=== PATIENT | female | born 1980 ===

== ENCOUNTER 2020-07-07 08:44 | Inpatient (IN) | payer OTHER ==
[~2020-07-07] VITALS: Ht 162.6 cm; Wt 2.3 kg
[2020-07-07] MEDS ORDERED: PRENATAL TABLE1 EAC1 PO (09:25)
== END 2020-07-10 14:43 | disposition home or self-care (01) | DRG 788 ==
LOC: LDR 08:44 → OB/GYN 07-08 02:01
PROVIDERS: Obstetrics & Gynecology; ADMIT Obstetrics & Gynecology; ATTEND Obstetrics & Gynecology
PROC: 3E033VJ Introduction of Other Hormone into Peripheral Vein, Percutaneous Approach (ICD-10-PCS; 2020-07-07)
PROC: 4A1HXFZ Monitoring of Products of Conception, Cardiac Rhythm, External Approach (ICD-10-PCS; 2020-07-07)
PROC: 10D00Z1 Extraction of Products of Conception, Low, Open Approach (ICD-10-PCS; principal; 2020-07-07 17:15)
DX: O65.4 Obstructed labor due to fetopelvic disproportion, unspecified (principal); Z3A.38 38 weeks gestation of pregnancy; Z37.0 Single live birth; Z20.828 Contact with and (suspected) exposure to other viral communicable diseases